=== PATIENT | male | born 1970 | race Caucasian/White ===

== ENCOUNTER → 2024-07-09 14:08 | Outpatient (BNVA) | payer BC, SELFPAY | PROVIDERS: PCP Family Medicine; Visit Provider Family Medicine | DX: Z13.6 Encounter for screening for cardiovascular disorders (principal); Z12.5 Encounter for screening for malignant neoplasm of prostate; N40.0 Benign prostatic hyperplasia without lower urinary tract symptoms | CPT/HCPCS: 80053; 80061; 84153; 84439; 84443; 85025 ==

== ENCOUNTER 2024-07-16 14:48 | Outpatient (CLI) | payer BC, SELFPAY ==
--- NOTE | 2024-07-16 15:15 | USR_ITS ---
PROCEDURE INFORMATION: Exam: US Scrotum Exam date and time: 07/16/2024 3:14 PM Age: 54 years old Clinical indication: Other: L testicle mass TECHNIQUE: Imaging protocol: Real-time ultrasound of the scrotum and contents with color Doppler and image documentation. COMPARISON: No relevant prior studies available. FINDINGS: Right testicle: Normal. No mass. Normal color Doppler and arterial waveforms. No torsion. Left testicle: Normal. No mass. Normal color Doppler and arterial waveforms. No torsion. Epididymides: The left epididymis is slightly enlarged and hyperemic. Left epididymitis may be present. Scrotum/soft tissues: Bilateral hydrocele, left greater than right. US/US scrotum [id number] IMPRESSION: Possible left epididymitis.
== END 2024-07-16 14:49 | disposition home or self-care (01) ==
PROVIDERS: PCP Family Medicine; Visit Provider Family Medicine
DX: N50.89 Other specified disorders of the male genital organs (principal); R93.89 Abnormal findings on diagnostic imaging of other specified body structures; N43.3 Hydrocele, unspecified
CPT/HCPCS: 76870